=== PATIENT | female | born 1960 | race Caucasian/White ===

== ENCOUNTER → 2024-10-07 | Outpatient (CLI) | payer BC, SELFPAY ==
--- NOTE | 2024-10-07 12:20 | XR_ITS ---
Examination: Bone densitometry Date and time of exam:October 07, 2024 1257 hours INDICATIONS: Menopause age 46 Technique: Lumbar spine and hip total bone mineralization values of an calculated. Peak reference and age match control results have been displayed. Findings: Lumbar spine total bone mineralization is0.900 gm/cm2. This is 1.3 standard deviations below peak reference. This is 0.4 standard deviations above age-matched controls. Hip total bone mineralization is 0.770 gm/cm2 This is 1.4 standard deviations below peak reference. This is 0.2 standard deviations below age-matched controls Impression: There is osteopenia based on lumbar spine measurements. There is osteoporosis based on hip measurements
--- NOTE | 2024-10-07 13:00 | XR_ITS ---
Examination: Screening digital mammography, bilateral Computer aided detection 3-D breast Tomosynthesis, bilateral Date and time of exam: October 07, 2024 1241 hours Compared to mammograms dating to April 15, 2018 Indication: Screening Technique: Nonmagnified MLO, CC views of the breasts to been obtained, reconstructed from 3-D Tomosynthesis images. R2 computer aided detection program utilized for evaluation of suspicious masses and/or abnormal calcifications. 3-D Tomosynthesis images obtained. Findings: Scattered areas of fibroglandular density. Benign calcifications. No interval suspicious masses Impression: BI-RADS category II: Benign Findings. Recommend 1 year follow-up mammogram.
== END | disposition home or self-care (01) ==
LOC: CDIM 12:19
PROVIDERS: Referring Provider Specialist; Visit Provider Specialist
DX: Z12.31 Encounter for screening mammogram for malignant neoplasm of breast (principal); R92.323 Mammographic fibroglandular density, bilateral breasts; R92.1 Mammographic calcification found on diagnostic imaging of breast; Z13.820 Encounter for screening for osteoporosis; M85.88 Other specified disorders of bone density and structure, other site; M81.0 Age-related osteoporosis without current pathological fracture
CPT/HCPCS: 77063; 77067; 77080

== ENCOUNTER 2025-04-05 09:35 | Emergency (ER) | payer BC, SELFPAY ==
[2025-04-05 09:36] VITALS: BMI 29.0
[2025-04-05 09:50] VITALS: BP 118/78; PULSE 103; RESP 18; TEMP 37.1; O2SAT 97
--- NOTE | 2025-04-05 09:57 | XR_ITS ---
Examination: Abdomen sonogram, Limited Date and time of exam: April 05, 2025 1036 hours INDICATIONS: Right upper abdominal pain and nausea beginning 2 days ago Technique: Real-time conner scale transabdominal sonographic images of the upper abdomen obtained. Findings: Multiple gallstones Gallbladder wall 0.35 cm no edema Common bile duct 0.6 cm no stones Pancreatic head 2.9 cm Minimal dilatation pancreatic duct 4 mm Liver 12.9 cm no liver lesions Normal hepatopedal portal venous flow Patent IVC IMPRESSION: Cholelithiasis, negative for cholecystitis Common bile duct 0.6 cm no stones
--- NOTE | 2025-04-05 09:58 | EDNOTE_ITS ---
<Statement entered by Clemencia Harman MD - 04/19/25 06:25> As co-signing physician, I was present and available for consult prn. I concur with the plan and care as documented by the midlevel provider. ED Abdominal Pain RME/HPI General Chief Complaint: Abdominal Pain Stated complaint: R) QUADRANT ABD PAIN; FEVER Time seen by provider: 04/05/25 09:48 Arrival date/time: 04/05/25 09:35 64-year-old female with no known medical history presents to the emergency room with a chief complaint of right upper quadrant abdominal pain, nausea, fever x 2 days Source: patient Mode of arrival: ambulatory Limitations: no limitations Related Data Allergies Allergy/AdvReac Type Severity Reaction Status Date / Time Penicillins Allergy Verified 04/05/25 09:39 Review of Systems Review of Systems Systems Reviewed: All systems reviewed, normal except as documented Constitutional Constitutional: Reports system reviewed and no additional complaints, except as documented, Denies fatigue, Denies fever(s), Denies headache(s) and Denies weakness Eyes Eyes: Reports system reviewed and no additional complaints, except as documented, Denies blurry vision and Denies change in vision ENT Ears, Nose, Mouth, and Throat: Reports system reviewed and no additional complaints, except as documented, Denies otalgia, Denies headache(s), Denies nasal congestion, Denies throat swelling and Denies vertigo Cardiovascular Cardiovascular: Reports system reviewed and no additional complaints, except as documented, Denies chest pain, Denies dyspnea and Denies dyspnea on exertion Respiratory Respiratory: Reports system reviewed and no additional complaints, except as documented, Denies chest congestion, Denies cough, Denies dyspnea, Denies dyspnea on exertion and Denies wheezing Gastrointestinal Gastrointestinal: Reports system reviewed and no additional complaints, except as documented, Reports abdominal pain, Reports cramping, Reports nausea and Denies vomiting Genitourinary Genitourinary: Reports system reviewed and no additional complaints, except as documented Musculoskeletal Musculoskeletal: Reports system reviewed and no additional complaints, except as documented and Denies back pain Integumentary/Breasts Skin/Breast: Reports system reviewed and no additional complaints, except as documented and Denies wounds Neurologic Neurologic: Reports system reviewed and no additional complaints, except as documented, Denies confusion, Denies headache(s), Denies lack of coordination, Denies vertigo and Denies weakness Psychiatric Psychiatric: Reports system reviewed and no additional complaints, except as documented, Denies anxiety, Denies confusion, Denies depression, Denies paranoia, Denies suicidal ideation and Denies tactile hallucinations Endocrine Endocrine: Reports system reviewed and no additional complaints, except as documented and Denies fatigue Hematologic/Lymphatic Hematologic/Lymphatic: Reports system reviewed and no additional complaints, except as documented and Denies lymphadenopathy Allergic/Immunologic Allergic/Immunologic: Reports system reviewed and no additional complaints, except as documented, Denies throat swelling, Denies urticaria and Denies wheezing Past Medical History Social History SMOKING STATUS: Never smoker ED Exam General Limitations: Present no limitations General appearance: Present alert and in no apparent distress Head Head exam: Present atraumatic Eye Eye exam: Present normal appearance, PERRL and EOMI ENT ENT exam: Present normal exam, normal oropharynx and mucous membranes moist Neck Neck exam: Present normal inspection, full ROM and trachea midline Chest Chest inspection: Present normal inspection and symmetric chest wall rise Respiratory Respiratory exam: Present normal lung sounds bilaterally Cardiovascular Cardiovascular exam: Present regular rate, normal rhythm and normal heart sounds Abdominal Exam Abdominal exam: Present soft, tenderness, normal bowel sounds and Simeon's sign Abdominal tenderness: Present RUQ and moderate Extremities Exam Extremities exam: Present normal inspection and full ROM Back Exam Back exam: Present normal inspection and full ROM Neurological Exam Neurological exam: Present alert, oriented X3 and CN II-XII intact Psychiatric Psychiatric exam: Present normal affect and normal mood Skin Skin exam: Present warm, dry, intact and normal color Course Quality Measures none Orders Category Date Time Status US gall bladder Stat Exams 04/05/25 09:57 Completed CBC Stat Lab 04/05/25 10:10 Completed CMP [Comprehensive Metabolic Panel] Stat Lab 04/05/25 10:10 Completed Lipase Stat Lab 04/05/25 10:10 Completed UA [Urinalysis] Stat Lab 04/05/25 11:58 Completed Urine Culture Stat Lab 04/05/25 11:58 Received HYDROcodone*/APAP 5/325 [[place] 5/325] Med 04/05/25 09:57 Discontinued 1 tab PO X1 ONE Ketorolac Inj [Toradol Inj] Med 04/05/25 10:13 Discontinued 30 mg IM X1 ONE Ondansetron Odt [Zofran Odt] Med 04/05/25 09:57 Discontinued 4 mg PO X1 ONE Vital Signs Vital signs: Vital Signs Temperature 98.7 F 04/05/25 09:50 Pulse Rate 103 H 04/05/25 09:50 Respiratory Rate 18 04/05/25 09:50 Blood Pressure 118/78 04/05/25 09:50 Pulse Oximetry (%) 97 04/05/25 09:50 Oxygen Delivery Method Room Air 04/05/25 09:50 O2 saturation 97% within normal limits Abdominal Pain MDM MDM Narrative MDM Narrative:: 64-year-old female with no known medical history presents to the emergency room with a chief complaint of right upper quadrant abdominal pain, nausea, fever x 2 days Patient is hemodynamically stable and in no apparent distress Physical examination shows right upper quadrant abdominal tenderness with palpation. The patient has a positive Simeon sign. Patient has had nausea and vomiting CBC shows leukocytosis. An ultrasound of the gallbladder was completed and shows cholelithiasis but is negative for cholecystitis Dr. Garcia the general surgeon was consulted and she came to evaluate the patient and decided the patient was stable enough to be discharged. The patient states her pain is now gone and she feels a lot better. The patient states she called her primary care provider has an appointment and will be seeing Dr Martinez the general surgeon in an outpatient setting. Patient was discharged and educated to follow-up with primary care provider in the next 24 to 48 hours and return to the emergency room for any evidence of worsening signs or symptoms Patient data External records reviewed:: [facility] previous records Clinical information provided by:: patient Social determinants that could affect healthcare access:: none Patient has the following chronic illnesses:: No chronic illness How is presenting disease/condition affected by chronic disease/condition?: no chronic disease Evaluation data The following diagnostics were reviewed and interpreted by me:: lab results and radiology exam(s) Lab and/or radiology exams considered but not ordered:: Labs and radiology exams considered Interpretation Summary: Ultrasound gallbladder-Findings: Multiple gallstones Gallbladder wall 0.35 cm no edema Common bile duct 0.6 cm no stones Pancreatic head 2.9 cm Minimal dilatation pancreatic duct 4 mm Liver 12.9 cm no liver lesions Normal hepatopedal portal venous flow Patent IVC IMPRESSION: Cholelithiasis, negative for cholecystitis Common bile duct 0.6 cm no stones Medications / Prescriptions Medications or Prescriptions considered but not ordered:: Medication given Medication administrations:: Medication Administration History Discontinued Medications Hydrocodone Bitart/Acetaminophen (Hydrocodone/Apap 5/325 Tablet) 1 tab PO X1 ONE Stop: 04/05/25 09:58 Last Admin: 04/05/25 10:23 Dose: Not Given Documented By: Non-Admin Reason: Patient Refused Comments: patient refused, patient did not want to take narcotic medication. Ketorolac Tromethamine (Ketorolac Inj 60 Mg/2 Ml Vial) 30 mg IM X1 ONE Stop: 04/05/25 10:14 Last Admin: 04/05/25 10:24 Dose: 30 mg Documented By: Ondansetron HCl (Ondansetron Odt 4 Mg Tabrap) 4 mg PO X1 ONE; Protocol Stop: 04/05/25 09:58 Last Admin: 04/05/25 10:12 Dose: 4 mg Documented By: Medication given Consultations Consultation(s) initiated? (list below): Yes Consultation #1 (Physician, Specialty, Details): Dr. Garcia general surgeon Time: 14:00 Diagnosis Differential diagnosis abdominal pain: abdominal pain, acute appendicitis, constipation, gastroenteritis and other (Cholelithiasis/cholecystitis) Most likely diagnosis given after review of the tests above:: Cholelithiasis Admission Indicated Admission indicated?: not indicated Admission Request Was there a request for admission?: No Disposition Plan Disposition Plan: Discharge Discharge Attestation Discharge Attestation: The patient and all family members were given an opportunity to ask questions and understood the discharge instructions. Discharge instructions specifically effects, indications for sooner follow up or return to the emergency department, and the expected course of current diagnosis. Patient condition: Stable Discharge Plan Plan Patient Disposition: HOME (Self Care) Discharge Disposition comment: Stable Prescriptions/Referrals Referrals: Leeroy Suarez PA-C [Primary Care Provider] - In 1 week Problem List Clinical Impression: Cholelithiasis Patient/Caregiver Discharge Instructions Education Materials: What Are Gallstones, Treating Gallstones, ED Gallstones with Biliary Colic Additional Instructions: Please follow-up with your primary care provider in the next 24 to 48 hours You will need a referral to a general surgeon for outpatient removal of your gallbladder For any evidence of worsening signs or symptoms return to the emergency room i mmediately Print Language: Icelandic Stand Alone Forms: Work/School Release CHASE/BIA Supervising Physician SANJUANA Supervising Physician: Dr. HARMAN
[2025-04-05] MEDS: ONDANSETRON ODT 4 MG TABRAP PO (10:12)
[2025-04-05] MEDS: KETOROLAC INJ 60 MG/2 ML VIAL 30 MG IM (10:24)
[2025-04-05 10:26] LABS: Basophils # (Auto) 0.0 Thou/mm3 (0.0-0.2); Basophils % (Auto) 0 % (0-2.5); Eosinophils # (Auto) 0.0 Thou/mm3 (0.0-0.5); Eosinophils % (Auto) 0 % (0-10); Hematocrit 47.3 % (36.0-46.0); Hemoglobin 15.9 g/dL (12.0-16.0); Immature Granulocytes Auto 0.08 Thou/mm3 (0.00-0.00); Lymphocytes # (Auto) 1.2 Thou/mm3 (1.0-4.8); Lymphocytes % (Auto) 7 % (10-50); Mean Corpuscular HGB Conc 33.6 g/dl (31.0-37.0); Mean Corpuscular Hemoglobin 31.1 pg (25.0-35.0); Mean Corpuscular Volume 92 fL (80-100); Monocytes # (Auto) 1.1 Thou/mm3 (0.0-0.8); Monocytes % (Auto) 6 % (0-12); Neutrophils # (Auto) 15.3 Thou/mm3 (1.8-7.7); Neutrophils % (Auto) 86 % (37-80); Nucleated Red Blood Cell # 0.00 Thou/mm3 (0.00-0.00); Nucleated Red Blood Cell % 0 /100 WBC (0); Platelet Count 245 Thou/mm3 (140-440); RDW Standard Deviation 47.8 fL (36.4-46.3); Red Blood Count 5.12 Miln/mm3 (4.00-5.20); White Blood Count 17.7 Thou/mm3 (3.6-11.0)
[2025-04-05 11:00] LABS: Alanine Aminotransferase 7 U/L (10-49); Albumin, Serum 4.4 gm/dL (3.4-4.8); Albumin/Globulin Ratio 1.7 (1.2-2.2); Alkaline Phosphatase 77 U/L (46-116); Anion Gap 14 (7-16); Aspartate Amino Transferase 20 U/L (0-34); BUN/Creatinine Ratio 13 Ratio (12-20); Bilirubin,Total 0.8 mg/dL (0.3-1.2); Blood Urea Nitrogen 9 mg/dL (9-23); Calcium 10.3 mg/dL (8.3-10.6); Calcium (Corrected) 10.3 mg/dL (8.5-10.1); Carbon Dioxide 21.8 mMol/L (20.0-31.0); Chloride 101 mMol/L (98-107); Creatinine (Component) 0.7 mg/dL (0.6-1.3); Estimated Creatinine Clearance 68.7 mL/min (>60); Globulin 2.6 gm/dL (2.3-3.5); Glucose 128 mg/dL (74-106); Lipase 26 U/L (12-53); Osmolality,Calculated 274 (275-295); Potassium 3.5 mMol/L (3.4-5.1); Sodium 137 mMol/L (136-145); Total Protein 7.0 gm/dL (5.7-8.2); eGFR > 60 See Note
[2025-04-05 11:42] VITALS: BP 113/74; PULSE 75; RESP 13; TEMP 36.8; O2SAT 98
[2025-04-05 12:21] LABS: Collection Type, Urine Clean Catch; RBC,Urine 0 /hpf (0-3)
[2025-04-05 12:40] LABS: Bacteria,Urine 1+; Bilirubin,Urine Negative (Negative); Blood,Urine Negative (Negative); Clarity,Urine Turbid (Clear/Hazy); Color,Urine Yellow (Lt Yel-Yel); Glucose, Urine Trace (Negative); Hyaline Casts,Urine 1 /hpf (0-1); Ketones,Urine 1+ (Negative); Leukocyte Esterase,Urine Positive (Negative); Nitrite,Urine Negative (Negative); PH,Urine 6.0 (5.0-7.0); Protein,Urine 1+ (Neg - Trace); Specific Gravity,Urine 1.023 (1.001-1.035); Squamous Epithelial Cell,Urine 7 /hpf (0-5); Urobilinogen,Urine Negative mg/dL (0.0-1.0); WBC,Urine 17 /hpf (0-5)
== END 2025-04-05 15:43 | disposition home or self-care (01) ==
PROVIDERS: Nurse Practitioner Family; Emergency Provider Emergency Medicine; PCP Physician Assistant
DX: K80.70 Calculus of gallbladder and bile duct without cholecystitis without obstruction (principal)
CPT/HCPCS: 36415; 76705; 80053; 81001; 83690; 85025; 87086; 96372; 99283; J1885; Q0162

== ENCOUNTER 2025-04-12 05:35 | Day surgery (SDC) | payer BC, SELFPAY ==
--- NOTE | 2025-04-08 06:38 | EKG_ITS ---
[facility] Test Date: 2025-04-08 Pat Name: ALESHA JIMENES Department: Room: - Gender: Female Evs Manager: ANNITA : 1960 Requested By: Desi Martinez Order Number: [id number] Reading MD: Desi Martinez Measurements Intervals Colon Rate: 79 P: 16 DC: 129 QRS: -3 QRSD: 92 T: -2 QT: 373 QTc: 428 Interpretive Statements SINUS RHYTHM WITH OCCASIONAL SUPRAVENTRICULAR PREMATURE COMPLEXES LOW QRS VOLTAGE IN PRECORDIAL LEADS [QRS DEFLECTION < 1.0 mV IN CHEST LEADS] PATTERN CONSISTENT WITH PULMONARY DISEASE MINIMAL ST DEPRESSION [0.025+ mV ST DEPRESSION] No previous ECG available for comparison /[id number]/[email or web address]/[id number]
[2025-04-08 09:38] VITALS: BMI 29.2
[2025-04-08 10:53] LABS: Basophils # (Auto) 0.0 Thou/mm3 (0.0-0.2); Basophils % (Auto) 0 % (0-2.5); Eosinophils # (Auto) 0.1 Thou/mm3 (0.0-0.5); Eosinophils % (Auto) 1 % (0-10); Hematocrit 40.9 % (36.0-46.0); Hemoglobin 13.7 g/dL (12.0-16.0); Immature Granulocytes Auto 0.04 Thou/mm3 (0.00-0.00); Lymphocytes # (Auto) 1.3 Thou/mm3 (1.0-4.8); Lymphocytes % (Auto) 12 % (10-50); Mean Corpuscular HGB Conc 33.5 g/dl (31.0-37.0); Mean Corpuscular Hemoglobin 31.4 pg (25.0-35.0); Mean Corpuscular Volume 94 fL (80-100); Monocytes # (Auto) 0.8 Thou/mm3 (0.0-0.8); Monocytes % (Auto) 8 % (0-12); Neutrophils # (Auto) 8.7 Thou/mm3 (1.8-7.7); Neutrophils % (Auto) 79 % (37-80); Nucleated Red Blood Cell # 0.00 Thou/mm3 (0.00-0.00); Nucleated Red Blood Cell % 0 /100 WBC (0); Platelet Count 255 Thou/mm3 (140-440); RDW Standard Deviation 48.6 fL (36.4-46.3); Red Blood Count 4.37 Miln/mm3 (4.00-5.20); White Blood Count 11.0 Thou/mm3 (3.6-11.0)
[2025-04-08 11:11] LABS: Alanine Aminotransferase < 7 U/L (10-49); Albumin, Serum 4.0 gm/dL (3.4-4.8); Albumin/Globulin Ratio 1.7 (1.2-2.2); Alkaline Phosphatase 61 U/L (46-116); Anion Gap 11 (7-16); Aspartate Amino Transferase 14 U/L (0-34); BUN/Creatinine Ratio 20 Ratio (12-20); Bilirubin,Total 0.8 mg/dL (0.3-1.2); Blood Urea Nitrogen 12 mg/dL (9-23); Calcium 9.5 mg/dL (8.3-10.6); Calcium (Corrected) 9.5 mg/dL (8.5-10.1); Carbon Dioxide 23.4 mMol/L (20.0-31.0); Chloride 104 mMol/L (98-107); Creatinine (Component) 0.6 mg/dL (0.6-1.3); Estimated Creatinine Clearance 80.3 mL/min (>60); Globulin 2.4 gm/dL (2.3-3.5); Glucose 93 mg/dL (74-106); Osmolality,Calculated 275 (275-295); Potassium 3.5 mMol/L (3.4-5.1); Sodium 138 mMol/L (136-145); Total Protein 6.4 gm/dL (5.7-8.2); eGFR > 60 See Note
--- NOTE | 2025-04-09 11:08 | SUR.PREOP ---
Pt notified of surgery date and time changed, pt to come in Saturday at 0545.
[2025-04-12] VITALS (7 sets, daily range): BP systolic 80–118; BP diastolic 52–71; PULSE 56–89; RESP 15–20; TEMP 36.2–36.8; O2SAT 95–100; BMI 29.1
--- NOTE | 2025-04-12 08:33 | PD.SUROPNT ---
Date of Procedure 04/12/25 Pre Op Diagnosis Symptomatic cholelithiasis Post Op Diagnosis Cholelithiasis with cholecystitis Hydrops of the gallbladder Procedure Laparoscopic cholecystectomy Findings Very distended and thick-walled gallbladder with dense pericholecystic adhesions. Anterior surface of the liver was smooth without nodules or any lesions Procedure Description Patient was brought into the operating room in supine position. After administration of general endotracheal anesthesia abdomen was prepped and draped in standard surgical manner. A Veress needle was inserted through the umbilicus and pneumoperitoneum was obtained up to 15 mmHg. The Veress needle was then removed, a 5 mm infraumbilical incision was made and the 5mm trocar was inserted. Laparoscopic camera was placed. Under direct visualization a laparoscopic camera a 10 mm trocar was placed in subxiphoid and two 5 mm trocars placed in right upper quadrant. The anterior surface of the liver was smooth without nodules or any lesions. There were dense adhesions of omentum into the inferior aspect of the gallbladder that was bluntly dissected. The gallbladder was identified and was noted to be very distended and thick-walled with multiple gallstones. The gallbladder was aspirated to be decompressed, the contents were clear fluid consistent with hydrops of the gallbladder. It was retracted cephalad and laterally. Dissection started near the infundibulum of gallbladder where cystic duct and gallbladder junction clearly identified. The cystic duct was circumferentially dissected off the peritoneum and surrounding inflammatory tissue. The critical view of safety was clearly demonstrated. Cystic duct was then divided between 2 endoclips proximally and one distally. The cystic artery was similarly dissected and divided. The gallbladder was then from the liver bed using electrocautery. The gallbladder was then placed inside an Endo Catch and removed from the abdomen utilizing subxiphoid trocar site. The area was copiously and thoroughly washed and irrigated, all the fluid was suctioned and the suction fluid returned clear. Hemostasis achieved using electrocautery. Endoclips noted be in place and intact without any bleeding or any leakage. Hemostasis was adequate and satisfactory. The subxiphoid trocar sites fascial defect was closed with 0 Vicryl using Endo Closure device. Instruments and trocars removed, pneumoperitoneum was evacuated and the incisions closed with 4-0 Monocryl in subcuticular fashion. Instrument needle and sponge counts were all reported to be correct X2. Patient tolerated the procedure well, was extubated, breathing spontaneously and without difficulty and was transferred to postanesthesia care in stable condition. Anesthesia GETA and local Pathology / specimen Other (Gallbladder and contents) Estimated Blood Loss 50 Condition Stable Disposition PACU Surgeon Desi Martinez MD Surgical Staff Operation Date: 04/12/25 07:30 Case Staff Anesthesiologist: Mao Telles RNcomputer forensics investigator: Josefina Walker
--- NOTE | 2025-04-12 08:40 | SUR.PHASEI ---
Pt. wakes to name then drifts back to sleep, vitals stable, breathing unlabored, no complaint of pain or nausea, x4 dermabond sites to ABD CDI, no active bleed noted, report received from MD Telles and Evelia REDDY.
[2025-04-12] MEDS: ONDANSETRON INJ 2 MG/ML INJ 2 ML 4 MG IVP (08:53)
[2025-04-12] MEDS: METOCLOPRAMIDE INJ 5 MG/ML VIAL 2 ML 10 MG IVP (09:05)
[2025-04-12] MEDS: fentaNYL CIT INJ 50 mCg/ML AMP 2ML IVP ×2 (09:05→09:13)
--- NOTE | 2025-04-12 09:35 | SUR.PHASEII ---
0935: Pt. AAOx4, vitals stable, breathing unlabored, no complaint of pain or nausea, x4 dressing to ABD CDI, no active bleed noted, pt. tolerated sips of water well, pt. ambulated to wheelchair with steady gait and no assist, no complications. Gave discharge instructions to the pt. and her ride, both verbalized understanding and had no further questions. Pt. left with all personal belongings.
== END 2025-04-12 09:35 | disposition home or self-care (01) ==
PROVIDERS: PCP Physician Assistant; Referring Provider Surgery; Visit Provider Surgery
PROC: 0FT44ZZ Resection of Gallbladder, Percutaneous Endoscopic Approach (ICD-10-PCS; CPT 47562; principal; 2025-04-12 07:30)
DX: K80.10 Calculus of gallbladder with chronic cholecystitis without obstruction (principal); K82.1 Hydrops of gallbladder; Z01.810 Encounter for preprocedural cardiovascular examination; I49.1 Atrial premature depolarization
CPT/HCPCS: 47562; 36415; 80053; 85025; 93005; A4217; A4649; J0131; J0694; J1100; J2371; J2405; J2704; J2710; J2765; J3010; J3490; J1596